=== PATIENT | male | born 1960 | race Caucasian/White ===

== ENCOUNTER 2020-03-07 21:02 | Emergency (ER) | payer OTHER ==
[~2020-03-07] VITALS: Ht 170.2 cm; Wt 67.1 kg
[2020-03-07 21:57] LABS: ABSOLUTE NEUTROPHILS 5.4 thou/uL (1.4-8.2); BASOPHILS 1.2 % (0.0-2.0); EOSINOPHILS 1.2 % (0.0-3.0); HEMATOCRIT 48.4 % (42.0-52.0); HEMOGLOBIN 16.6 gm/dL (14.0-18.0); LYMPHOCYTES 28.8 % (24.0-44.0); MCH 35.2 pg (26.0-34.0); MCHC 34.2 g/dL (28.0-37.0); MCV 102.8 fL (80.0-100.0); MONOCYTES 7.5 % (1.0-8.0); PLATELET COUNT 244 thou/uL (150-400); POLYS 61.3 % (36.0-66.0); RBC 4.71 mil/uL (4.50-6.00); RDW 13.3 % (10.5-14.5); WBC 8.7 thou/uL (4.0-11.0)
[2020-03-07 21:58] LABS: ANION GAP 11 mmol/L (7-16); BUN 4 mg/dL (7-18); CALCIUM 10.5 mg/dL (8.5-10.1); CHLORIDE 101 mmol/L (98-107); CO2 26 mmol/L (21-32); CREATININE 0.9 mg/dL (0.7-1.3); GLUCOSE 121 mg/dL (74-106); SODIUM 138 mmol/L (136-145)
[2020-03-07 22:08] LABS: ALBUMIN 4.4 g/dL (3.4-5.0); LIPASE 127 U/L (73-393); SGOT 19 U/L (15-37); SGPT 28 U/L (16-63); TOTAL BILIRUBIN 0.8 mg/dL (0.2-1.0); TOTAL PROTEIN 7.7 g/dL (6.4-8.2); TROPONIN-I <0.06 ng/mL (<0.06)
[2020-03-08 00:39] VITALS: BP 121/79
--- NOTE | 2020-03-08 07:18 | EKG ---
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 03/08/20 0718 [id number] 16 Valentin Laguna MD, FACC /EPI
== END 2020-03-08 00:40 | disposition still patient (30) ==
LOC: ER 21:02
PROVIDERS: Emergency Medicine
DX: R07.89 Other chest pain (principal); R06.02 Shortness of breath; R05 Cough; I10 Essential (primary) hypertension; F17.210 Nicotine dependence, cigarettes, uncomplicated; Z88.2 Allergy status to sulfonamides

== ENCOUNTER → 2020-03-14 | Outpatient (CLI) | payer OTHER | LOC: SJCVCIMAG 10:21 | PROVIDERS: ATTEND Internal Medicine Cardiovascular Disease | DX: I10 Essential (primary) hypertension (principal); R00.1 Bradycardia, unspecified; E78.5 Hyperlipidemia, unspecified ==